=== PATIENT | female | born 1995 | race Caucasian/White ===

== ENCOUNTER 2016-10-13 15:11 | Emergency (ER) | END 2016-10-13 18:20 | disposition home or self-care (01) | DX: N64.4 Mastodynia (principal) ==

== ENCOUNTER 2016-12-03 13:22 | Emergency (ER) | payer BC ==
[~2016-12-03] VITALS: Ht 157.5 cm; Wt 60.0 kg
[~2016-12-03 13:22] MED LIST: IBUP400T22 PO; IBUP800T25 PO; NITR-58 PO; ONDA4TAB14 PO; [UNRECOGNIZED DRUG - OTHER]; no meds taken
[2016-12-03 13:25] VITALS: Ht 157.5 cm; Wt 60.0 kg
[2016-12-03 15:20] LABS: ADD UMIC NO; URINE BILIRUBIN (Dip) NEGATIVE (NEGATIVE); URINE BLOOD (Dip) NEGATIVE (NEGATIVE); URINE COLOR LT. YELLOW (YELLOW); URINE GLUCOSE (Dip) NEGATIVE (NEGATIVE); URINE KETONES (Dip) 15 (NEGATIVE); URINE LEUKOCYTE ESTERASE (Dip) NEGATIVE (NEGATIVE); URINE NITRITE (Dip) NEGATIVE (NEGATIVE); URINE TOTAL PROTEIN (Dip) NEGATIVE (NEGATIVE); URINE UROBILINOGEN (Dip) 0.2 E.U./dL (0.1-1.0)
--- NOTE | 2016-12-03 15:51 | RADRPT ---
PROCEDURE: Right knee series. CLINICAL INDICATION: Right knee pain after trauma TECHNIQUE: 4 views of the right knee are available for review. COMPARISON: None available FINDINGS: There is normal mineralization and alignment of the bones of the right knee. No acute fracture or d islocation is identified. No joint effusion is seen. Overlying soft tissues are unremarkable. IMPRESSION: 1. Unremarkable right knee x-ray series. RPTAT: KK .Pipo Cole MD, MD Date Time Electronically viewed and signed by .Pipo Cole MD, on 12/03/2016 15:51 .B/
[2016-12-03] MEDS ORDERED: IBUP400T22 PO (17:01)
[2016-12-03 17:23] VITALS: BP 118/64; PULSE 75; RESP 19; TEMP 98.4
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
== END 2016-12-03 17:24 | disposition home or self-care (01) ==
LOC: FTE 13:22
DX: M25.561 Pain in right knee (principal); M54.5 Low back pain; Z04.1 Encounter for examination and observation following transport accident
CPT/HCPCS: 73562; 81003